=== PATIENT | male | born 1960 | race Caucasian/White ===

== ENCOUNTER 2017-04-24 18:58 | Emergency (ER) | payer BC ==
[~2017-04-24] VITALS: Ht 170.2 cm; Wt 83.0 kg
[2017-04-24 19:19] VITALS: Ht 170.2 cm; Wt 83.0 kg
[2017-04-24] MEDS ORDERED: GUAI120S26 PO (19:44)
[2017-04-24] MEDS ORDERED: IBUP-1542 PO (19:44)
[2017-04-24] MEDS ORDERED: CETI10CA PO (19:44)
[2017-04-24] MEDS ORDERED: ALBU8.5H3 INH (19:44)
--- NOTE | 2017-04-24 19:52 | ERD ---
ER Documentation Chief Complaint Date/Time DATE: 04/24/17 TIME: 19:50 Chief Complaint productive cough x 4 days. Denies CP HPI 56-year-old male presents to emergency department for complaints of cough for 4 days. Patient been having dry cough with whitish phlegm. Patient has been having on and off wheezing. Patient denies any chest pain palpitations. Patient denies any dyspnea on exertion or dyspnea on lying down. Patient did not take any medication to help with symptoms. ROS All systems reviewed and are negative except as per history of present illness. Medications Home Meds Active Scripts Ibuprofen* (Motrin*) 600 Mg Tab, 600 MG PO Q6H Y for PAIN AND OR ELEVATED TEMP, #30 TAB Prov:DANIEL CHAMBERS NP 04/24/17 Cetirizine Hcl* (Zyrtec*) 10 Mg Capsule, 10 MG PO DAILY, #30 TAB.CHEW Prov:DANIEL CHAMBERS NP 04/24/17 Pkileymqqrr-V-Sbkhnkseru Hb* (Guaifenesin* DM Syrup) 120 Ml Syrup, 10 ML PO Q4H Y for COUGH, #120 ML Prov:DANIEL CHAMBERS NP 04/24/17 Albuterol Sulfate* (Proair HFA*) 8.5 Gm Hfa.aer.ad, 2 PUFF INH Q4H Y for WHEEZING AND SOB, #1 INHALER Prov:DANIEL CHAMBERS NP 04/24/17 Allergies Allergies: Coded Allergies: No Known Allergy (Unverified , 04/24/17) PMhx/Soc Medical and Surgical Hx: pt denies Medical Hx, pt denies Surgical Hx FmHx Family History: No coronary disease, No diabetes, No other Physical Exam Vitals Vital Signs Date Time Temp Pulse Resp B/P Pulse Ox O2 Delivery O2 Flow Rate FiO2 04/24/17 19:19 98.0 78 18 124/72 97 Physical Exam GENERAL: The patient is well developed and appropriate for usual state of health, in no apparent distress. CHEST: Clear to auscultation bilaterally. There are no rales, wheezes or rhonchi. HEART: Regular rate and rhythm. No murmurs, clicks, rubs or gallops. No S3 or S4. ABDOMEN: Soft, nontender and nondistended. Good bowel sounds. No rebound or guarding. No gross peritonitis. No gross organomegaly or masses. No Mari sign or McBurney point tenderness. BACK: No midline or flank tenderness. EXTREMITIES: Equal pulses bilaterally. There is no peripheral clubbing, cyanosis or edema. No focal swelling or erythema. Full range of motion. Grossly neurovascularly intact. NEURO: Alert and oriented. Cranial nerves 2-12 intact. Motor strength in all 4 extremities with 5/5 strength. Sensation grossly intact. Normal speech and gait. SKIN: There is no apparent rash or petechia. The skin is warm and dry. HEMATOLOGIC AND LYMPHATIC: There is no evidence of excessive bruising or lymphedema. No gross cervical, axillary, or inguinal lymphadenopathy. Procedures/MDM Medical Decision Making: Patient symptoms are most likely consistent with acute bronchitis, which viral in origin. There is low suspicion for Pneumonia at this time since patients lungs sounds are clear, patient O2 saturation is normal and patient doesnt show any respiratory distress. Radiology exam is not indicated at this time. There is low suspicion for other cardiopulmonary emergencies at this time such as CHF, Pulmonary Embolism, Pneumothorax, or any other cardiopulmonary emergencies at this time. There is low suspicion for sepsis. Patient appears well and is hemodynamically stable. Patient does not have any fever. . Disposition: Home. Condition: Stable Prescriptions: Guaifenesin DM Zyrtec ibuprofen albuterol Instructions: Patient is advised to take medications as prescribed. Patient is advised to rest. Patient advised to increase fluid intake, do humidifier at home and if possible, do salt water gargles. Patient is advised that if symptoms are worse, shortness of breath, uncontrolled fever, stridor, vomiting, worst signs and symptoms to return to emergency department immediately. Otherwise, patient is advised to follow up with primary doctor in 5-7 days. Departure Diagnosis: Primary Impression: Acute bronchitis Bronchitis organism: unspecified organism Qualified Code: J20.9 - Acute bronchitis, unspecified organism Condition: Stable Patient Instructions: Bronchitis With Wheezing (Adult) DANIEL CHAMBERS NP Apr 24, 2017 19:52
== END 2017-04-24 19:04 | disposition home or self-care (01) ==
LOC: E/R 18:58
DX: J20.9 Acute bronchitis, unspecified (principal)
CPT/HCPCS: 99283